=== PATIENT | female | born 1975 | race African-American/Black ===

== ENCOUNTER 2024-11-16 14:51 | Outpatient (CLI) | payer OTHER, SELFPAY ==
--- OUTSIDE RECORDS SUMMARY | 2024-11-16 14:30 | XMS_ITS | Encounter Summary ---
Author Organization [facility] [employer] [facility] Address [address] [place] [address] Care Team Providers Care Process Developer Name Role Phone Unavailable Primary Care Provider Unavailabl e Encounter Details Date Type Department Care Team (Late st Contact Info) Description 11/16/2024 2:30 PM CDT Office Visit [facility] Oncology and Hematology - [place] [address] [place] [address] Roxana Colin MD [address] [place] [address] Chronic anemia (Primary Dx) Social History Tobacco Use Types Packs/Day Years Used Date Smoking Tobacco: Never Smokeless Tobacco: Never Alcohol Use Standard Drinks/Week Comments Yes 0 (1 standard drink = 0.6 oz pur e alcohol) Occasionally Comments Unknown Sex and Gender Information Value Date Recorded Sex Assigned at Not on file Legal Sex Female 2:56 PM CDT Gender Identity Not on file Sexual Orientation Not on file documented as of this encounter Last Filed Vital Signs Vital Sign Reading Time Taken Comments Blood Pressure 154/87 11/16/2024 2:33 PM CDT Pulse 82 11/16/2024 2:30 PM CDT Temperature 36.1 C (96.9 F) 11/16/2024 2:30 PM CDT Respiratory Rate 15 11/16/2024 2:30 PM CDT Oxygen Saturation 100% 11/16/2024 2:30 PM CDT Inhaled Oxygen Concentration - - Weight 92.6 kg (204 lb 3.2 oz) 11/16/2024 2:30 P M CDT Height 165.1 cm (5' 5) 11/16/2024 2:30 PM CDT Body Mass Index 33.98 11/16/2024 2:30 PM CDT documented in this encounter Plan of Treatment Upcoming Encounters Date Type Department Care Team (Late st Contact Info) Description 12/15/2024 1:00 PM CDT Office Visit [facility] Oncology and Hematology - [place] [address] [facility] [address] [place] [address] Kam Vela MD [address] [facility] [address] [place] [address] Scheduled Orders Name Type Priority Associated Diagnoses Orde r Schedule CBC WITH DIFFERENTIAL Lab Stat Chronic anemia Expected: 11/16/2024, Expires: 11/16/2025 FERRITIN Lab Routine Chronic anemia Expected: 11/16/2024, Expires: 11/16/2025 IRON, TIBC, AND PERCENT SATURATION Lab Routine Chronic anemia Expected: 11/16/2024, Expires: 11/16/2025 VITAMIN B12 AND FOLATE Lab Routine Chronic anemia Expected: 11/16/2024, Expires: 11/16/2025 RETICULOCYTES Lab Routine Chronic anemia Expected: 11/16/2024, Expires: 11/16/2025 PROTEIN ELECTROPHORESIS W/REFLEX,SERUM Lab Routine Chronic anemia Expected: 11/16/2024, Expires: 11/16/2025 KAPPA/LAMBDA, FREE LIGHT CHAINS Lab Routine Chronic anemia Expected: 11/16/2024, Expires: 11/16/2025 documented as of this encounter Visit Diagnoses Diagnosis Chronic anemia- Primary Anemia, unspecified documented in this encounter
--- OUTSIDE RECORDS SUMMARY | 2024-11-16 15:04 | XMS_ITS | Clinical Summary ---
Author Organization [facility] Mary Chacko Address [address] [place] [address] Care Team Providers Care Ware Server Name Role Phone Unavailable Primary Care Provider Unavailabl e Allergies No known active allergies Medications amLODIPine (NORVASC) 10 mg tablet Take 1 Tablet by mouth daily. 11/08/2024 Active Vitamin B-1 100 mg tablet Take 1 Tablet by mouth daily. 09/07/2024 Active ergocalciferol (VITAMIN D2) 50,000 unit capsule Take 1 Capsule by mouth every 7 days. 10/11/2024 Active folic acid (FOLVITE) 1 mg tablet Take 1 Tablet by mouth daily. 10/16/2024 Active Active Problems Problem Noted Date Diagnosed Date Chronic anemia 11/16/2024 Encounters Date Type Department Care Team Description 11/16/2024 2:30 PM CDT Office Visit [facility] Oncology and Hematology - [place] [address] [address] Roxana Colin MD Chronic anemia (Primary Dx) from Last 3 Months Family History Medical History Relation Name Comments No Known Problems Brother 1 No Known Problems Brother 2 No Known Problems Child 1 No Known Problems Child 2 No Known Problems Child 3 No Known Problems Father No Known Problems Mother No Known Problems Sister Relation Name Status Comments Brother 1 Alive Brother 2 Alive Child 1 Alive Child 2 Alive Child 3 Alive Father Alive Mother Alive Sister Alive Social History Tobacco Use Types Packs/Day Years Used Date Smoking Tobacco: Never Smokeless Tobacco: Never Alcohol Use Standard Drinks/Week Comments Yes 0 (1 standard drink = 0.6 oz pur e alcohol) Occasionally Comments Unknown Sex and Gender Information Value Date Recorded Sex Assigned at Not on file Legal Sex Female 2:56 PM CDT Gender Identity Not on file Sexual Orientation Not on file Last Filed Vital Signs Vital Sign Reading [...] Mass Index 33.98 11/16/2024 2:30 PM CDT Plan of Treatment Upcoming Encounters Date Type Department Care Team (Late st Contact Info) Description 12/15/2024 1:00 PM CDT Office Visit [facility] Oncology and Hematology - [place] [address] [place] [address] [address] [place] [address] Kam Vela MD [address] [facility] [address] [place] [address] Health Maintenance Due Date Last Done Comments DTAP/TDAP/TD VACCINES (1 - Tdap) 1992 HEPATITIS B VACCINES (1 of 3 - 19+ 3-dose series) 05/16 HPV/Cotest (21-29) 1994 CERVICAL CANCER SCREENING 06/04/2003 HPV/Cotest (30-65) 06/04/2003 PAP SMEAR 06/04/2003 BREAST CANCER SCREENING 2013 COLORECTAL SCREENING 2018 Colorectal Cancer Screening 2018 FIT-DNA Q 3 years 2018 FIT/FOBT Q 1 year 2018 Flex Sig/CT Colonography Q 5 years 2018 ZOSTER VACCINE (1 of 2) 06/04/2023 Preventative Visit- Commercial 03/17/2024 INFLUENZA VACCINE (#1) 2024 Insurance [employer] MANAGED CHOICE
--- OUTSIDE RECORDS SUMMARY | 2024-11-16 15:05 | XMS_ITS | Clinical Summary ---
Author Organization [facility] Address [address] [place] [address] Care Team Providers Care Manager Delivery Name Role Phone Miscellaneous, Not In File Primary Care Provider Unavailable Allergies No known active allergies Medications No known medications Active Problems Problem Noted Date Diagnosed Date Atypical squamous cells of u ndetermined significance on cytologic smear of cervix (ASC-US) 05/27/2024 Overview (05/28/2024): Pap Hx: - 04/2023: Unsatisfactory/hrHPV + (not genotyped) - 05/10/24: ASCUS/hrHPV 18+ - 05/28/24: Colpo performed with ECC biopsy. Exam poorly tolerated Plan: - Follow-up pathology Surgical History Surgery Date Site/Laterality Comments TUBAL LIGATION Bilateral Social History Tobacco Use Types Packs/Day Years Used Date Smoking Tobacco: Never Passive Smoke Exposure: Never Smokeless Tobacco: Never Hunger Vital Sign Answer Date Recorded Within the past 12 months, y ou worried that your food would run out before you got the money to buy more. Patient declined Within the past 12 months, t he food you bought just didn't last and you didn't have money to get more. Patient declined Comments No Sex and Gender Information Value Date Recorded Sex Assigned at Not on file Legal Sex Female 10:03 PM INSET CUTTER Gender Identity Not on file Sexual Orientation Not on file Obstetrics History Para Term AB IAB SAB Ectopic Multiple Livin g Live Births 3 3 3 0 0 3 Date Outcome GA Total Labor Labor/2nd/3rd Weight Sex Type Anes PTL Jing A1 A5 Name Clin 1994 Term Vag-Spo nt 1996 Term Vag-Spo nt 1997 Term Vag-Spo nt Last Filed Vital Signs Vital Sign Reading Time Taken Comments Blood Pressure 154/90 05/28/2024 1:36 PM CDT Pulse 81 05/28/2024 1:36 PM CDT Temperature - - Respiratory Rate - - Oxygen Saturation 97% 05/28/2024 1:36 PM CDT Inhaled Oxygen Concentration - - Weight 92.4 kg (203 lb 9.6 oz) 05/28/2024 1:36 P M CDT Height 165.1 cm (5' 5) 05/28/2024 1:36 PM CDT Body Mass Index 33.88 05/28/2024 1:36 PM CDT Plan of Treatment Health Maintenance Due Date Last Done Comments Colon Cancer Screening-Colonoscopy 1973 Depression Screening 1973 Hepatitis C Screening 1973 DTaP/Tdap/Td Vaccine (1 - Tdap) 1984 Hepatitis B Screening 06/04/1991 Regular Well Visit/Exam 18-64 06/04/1991 Breast Cancer Screening-Mammogram 06/15/2016 06/16/2015 Zoster Vaccine (1 of 2) 06/04/2023 Covid-19 Vaccine (3 - 2024-2 6 season) 2024 12/27/2020, 12/04/2020 Influenza Vaccine (#1) 2024 Cervical Cancer Screening 04/20/20252024, 04/20/2024 Pneumococcal vaccine <65 Aged Out No longer eligible based on patient's age to complete this topic Procedures Procedure Name Priority Date/Time Associated Diagnosis Comments HIGH RISK HPV DNA DETECTION WITH GENOTYPING Routine 04/20/2024 4:53 PM INSET CUTTER Abnormal uterine bleeding from Last 3 Months or Most Recently Relevant to Health Maintenance Results * (ABNORMAL) High Risk HPV DNA Detection with Genotyping (Molecular component) (04/20/2024 4:53 PM INSET CUTTER) Pathologist [facility] HPV HR 16 Not Detected Not Detected [facility] HPV HR 18 Detected(A) Not Detected BE [facility] HPV HR Non 16/18 Not Detected Not Detected BE [facility] Comment: Interpretive Data Nucleic acid amplification for detection of high-risk Human Papilloma virus (HPV) is performed by the Dorian Hay 6800 HPV test. This assay specifically detects HPV-16 and HPV-18 genotypes. The following HPV genotypes are detected as high-risk HPV: HPV-31, 33, 35, ,39, 45, 51, 52, 56, 58, 59, 66, and 68. This assay has been approved by the [place] Food and Drug Administration for detection of HPV in cervical specimens collected by a physician using an endocervical brush/spatula or cervical broom and placed in the ThinPrep Pap Test PreservCyt collection containers. The performance characteristics of this test have been verified by the [facility] Molecular Infectious Disease laboratory. Correlate with separately reported cytology results, as applicable. Interpretive data last revised 22 Endocervical 04/20/2024 4:53 PM INSET CUTTER 04/22/2024 11:04 AM INSET CUTTER Narrative BE [facility] - 04/23/2024 5:57 AM INSET CUTTER Clinical history and diagnosis->screening, hx high risk hpv Testing type->Screening Last menstrual period (date if known)->04/14/24 us Albina Maloney MD LAB BODY FLUIDS AND STOOLS ORDERABLES Final Result [facility] [address] [facility] Department [place] [address] [facility] from Last 3 Months or Most Recently Relevant to Health [place] [address] [facility] [place] [address] [employer] Care Teams Manager Delivery Relationship Specialty Start Date End Date Miscellaneous, Not In File PCP - General 04/20/24
[2024-11-16 15:10] LABS: Hematocrit 32.8 % (37.0-47.0); Hemoglobin 9.3 g/dL (12.0-15.0); Immature Granulocyte Percent A 0.4 % (0-0.5); Immature Reticulocyte Fraction 35.4 % (3.0-15.9); Lymphocytes Absolute Auto 1.50 K/mm3 (0.9-3.2); Mean Corpuscular HGB Conc 28.4 g/dl (32-36); Mean Corpuscular Hemoglobin 19.7 pg (26-34); Mean Corpuscular Volume 69.5 fl (80-100); Nucleated Red Blood Cells Absolute Auto 0.000 K/mm3 (0.0-0.012); Nucleated Red Blood Cells Perc 0.0 % (0.0-0.2); Platelet Count Result 267 k/mm3 (150-375); Red Blood Count 4.72 M/mm3 (4.2-5.4); Reticulocyte Hemoglobin Conten 19.6 pg (28.2-36.6); Reticulocytes Absolute 0.09 10^6/uL (0.02-0.10); White Blood Count 6.7 K/mm3 (4.5-10.0)
[2024-11-16 15:14] LABS: Schistocytes None Seen
[2024-11-16 15:19] LABS: Anisocytosis 2+; Hypochromasia 1+; Ovalocytes 1+
[2024-11-16 16:39] LABS: Iron 32 ug/dL (37-170)
[2024-11-16 16:48] LABS: Percent Iron Saturation 7 % (20-50)
[2024-11-16 17:16] LABS: Ferritin 4.20 ng/mL (11.1-264)
[2024-11-16 17:46] LABS: Vitamin B12 203.0 pg/mL (239-931)
[2024-11-17 15:09] LABS: Albumin 3.7 g/dL (2.9-4.4); Alpha-1-Globulin 0.2 g/dL (0.0-0.4); Alpha-2-Globulin 0.7 g/dL (0.4-1.0); Gamma Globulin 1.5 g/dL (0.4-1.8)
[2024-11-17 18:08] LABS: Free Lambda Lt Chains, Serum 22.6 mg/L (5.7-26.3); Kappa/Lambda Ratio, Serum 1.05 (0.26-1.65)
== END 2024-11-16 14:52 | disposition home or self-care (01) ==
LOC: ANHLAB 14:52
PROVIDERS: PCP Internal Medicine; Visit Provider Internal Medicine Hematology & Oncology
DX: D64.9 Anemia, unspecified (principal)
CPT/HCPCS: 36415; 82607; 82728; 82746; 83521; 83540; 83550; 84155; 84165; 85025; 85046